=== PATIENT | female | born 1965 | race Hispanic/Latino ===

== ENCOUNTER → 2022-05-16 | Outpatient (CLI) | payer BC | END | disposition home or self-care (01) | LOC: SHCH 12:28 | PROVIDERS: ATTEND Internal Medicine Cardiovascular Disease | DX: R94.31 Abnormal electrocardiogram [ECG] [EKG] (principal); I51.89 Other ill-defined heart diseases | CPT/HCPCS: 93306 ==

== ENCOUNTER → 2022-05-17 | Outpatient (CLI) | payer BC | END | disposition home or self-care (01) | LOC: SLP 20:35 | PROVIDERS: ATTEND Internal Medicine Cardiovascular Disease | DX: G47.33 Obstructive sleep apnea (adult) (pediatric) (principal) | CPT/HCPCS: 95810 ==

== ENCOUNTER → 2024-09-01 | Outpatient (CLI) | payer BC ==
--- NOTE | 2024-09-01 09:47 | HMCIMG ---
UPPER GI TRACT, WO KUB REASON: Diaphragmatic hernia without obstruction or gangrene. COMPARISON: None TECHNIQUE: Biphasic upper GI series study was performed. FINDINGS: There is no obstruction to the antegrade passage of barium from mouth through jejunum. A normal esophageal stripping wave is seen. There is a small hiatal hernia. There is gastroesophageal reflux into the level of mid thoracic esophagus. Stomach is well distended without ulceration or mass lesion. Duodenal bulb and duodenal sweep are unremarkable. IMPRESSION: No obstruction. Gastroesophageal reflux to the level of mid thoracic esophagus.
== END | disposition home or self-care (01) ==
LOC: RAH 08:52
PROVIDERS: ATTEND Surgery
DX: K44.9 Diaphragmatic hernia without obstruction or gangrene (principal); K21.9 Gastro-esophageal reflux disease without esophagitis
CPT/HCPCS: 74240

== ENCOUNTER 2024-11-23 06:57 | Observation (INO) | payer BC ==
[2024-11-21 09:34] VITALS: BP 142/81; PULSE 52; RESP 12; TEMP 98.1
--- NOTE | 2024-11-21 10:13 | EKG ---
[facility] Test Date: 2024-11-21 Test Time: 10:59:38 Pat Name: AV MUÑOZ Department: [facility] Room: Gender: F Systems Integration Engineer: [id number] : 1965 Requested By: JAN RINCON Order Number: [id number] Reading MD: Amanuel Nix Measurements Intervals [place] Rate: 43 P: 31 WA: 153 QRS: -8 QRSD: 105 T: 41 QT: 520 QTc: 441 Interpretive Statements Sinus bradycardia No previous ECG available for comparison Electronically Signed On 11-21-2024 16:43:16 LEATHER TOOLER by Amanuel Nix Please click the below link to view image of tracing.
[2024-11-21 10:23] LABS: CREATININE 0.6 mg/dL (0.5-1.0); POTASSIUM 4.5 mmol/L (3.5-5.1)
[2024-11-21 10:24] LABS: INR <= 0.93 (0.85-1.15); PROTHROMBIN TIME 10.5 SEC (9.6-11.6)
[2024-11-21 10:26] LABS: PARTIAL THROMBOPLASTIN TIME 27.3 SEC (26.3-35.5)
[2024-11-21 10:27] LABS: BASOPHILS # (AUTO) 0.04 K/uL (0.00-0.20); BASOPHILS % (AUTO) 1.2 % (0.0-5.0); EOSINOPHILS # (AUTO) 0.18 K/uL (0.00-0.70); EOSINOPHILS % (AUTO) 5.5 % (0.0-8.0); HEMATOCRIT 39.5 % (36-48); IMMATURE GRANULOCYTE ABSOLUTE 0.01 K/uL (0-1); LYMPHOCYTES # (AUTO) 1.3 K/uL (1.0-4.8); LYMPHOCYTES % (AUTO) 38.8 % (21.0-51.0); MEAN CORPUSCULAR HEMOGLOBIN 29.2 pg (27.0-33.0); MEAN CORPUSCULAR HGB CONC 31.9 g/dL (32.0-36.0); MEAN CORPUSCULAR VOLUME 91.6 fL (79-99); MONOCYTES # (AUTO) 0.2 K/uL (0.1-1.0); MONOCYTES % (AUTO) 6.8 % (3.0-13.0); NEUTROPHILS # (AUTO) 1.5 K/uL (1.8-7.7); NEUTROPHILS % (AUTO) 47.4 % (40.0-77.0); PLATELET COUNT (AUTO) 191 K/uL (130-400); RED BLOOD CELL COUNT(AUTO) 4.31 MIL/uL (4.00-5.50); RED CELL DISTRIBUTION WIDTH 13.5 % (11.0-15.5); WHITE BLOOD COUNT (AUTO) 3.3 K/uL (4.8-10.8)
[2024-11-23] VITALS (33 sets, daily range): BP systolic 101–134; BP diastolic 53–88; PULSE 51–89; RESP 13–20; TEMP 97.4–98.1; O2SAT 96–99
[~2024-11-23] VITALS: Ht 167.6 cm; Wt 86.5 kg
[~2024-11-23 06:57] MED LIST: CHOL100046 PO; CYAN250010 PO; FISH1CAP27 PO; FOLI1 PO; LEVO50CA4 PO; MVIT PO; SIMV-43 PO
[2024-11-23] MEDS: ceFAZolin SODIUM 2 GM VIAL ONE (08:35)
[2024-11-23] MEDS: LACTATED RINGERS 1000ML 1,000 ML IV ONE (08:35)
[2024-11-23] MEDS ORDERED: proPOFol 10 MG/ML 20ML VIAL IV ONE (09:03)
[2024-11-23] MEDS ORDERED: FENTanyl CITRate PF 50 MCG/1 ML 2ML VIAL ONE (09:03)
[2024-11-23] MEDS ORDERED: rocuRONium bROMide 10MG/1ML 5ML VL ONE ×2 (09:03→10:23)
[2024-11-23] MEDS ORDERED: LIDOCAINE PF 100MG/5ML (2%) SYRINGE 5ML ONE (09:03)
[2024-11-23] MEDS ORDERED: GLYCOPYRROLATE 0.2 MG/ML 5 ML VIAL ONE (09:05)
[2024-11-23] MEDS: acetaMINOPHEN 100 ML ONE (09:39)
[2024-11-23] MEDS ORDERED: dexaMETHasone SOD PHOSPHATE 10MG/ML 1ML VIAL ONE (10:06)
[2024-11-23] MEDS ORDERED: ondanSETRON 4MG INJ ONE (10:07)
[2024-11-23] MEDS ORDERED: ketaMINE 50MG/ML SYRINGE 50 MG/ML DISP.SYRIN ONE (10:25)
[2024-11-23] MEDS ORDERED: phenylEPHRINE HCL 10 MG/ML 1ML VIAL IV ONE (10:32)
[2024-11-23] MEDS: BUPIvacaine/PF 0.5% 30ML VIAL ONE (10:34)
[2024-11-23] MEDS ORDERED: NEOSTIGMINE METHYLSULFATE 1MG/ML IV ONE (11:45)
[2024-11-23] MEDS: ondanSETRON 4MG INJ ONE (12:37)
[2024-11-23] MEDS ORDERED: HYDROcod/acetaMINOPHEN 7.5/325 MG 15 ML UDCUP PO PRN (13:00)
[2024-11-23] MEDS ORDERED: PROCHLORPERAZINE 10MG/2ML INJ IV PRN (13:00)
[2024-11-23] MEDS ORDERED: ondanSETRON 4MG INJ IVP PRN (13:00)
[2024-11-23] MEDS ORDERED: ketOROlac 15MG/ML VIAL (15MG/ML) IV PRN (13:00)
[2024-11-23] MEDS: hydroMORPHone 1 MG INJ ONE (13:20)
--- NOTE | 2024-11-23 13:44 | OP ---
Operative Note: DATE OF PROCEDURE: 11/23/24 SURGEON: JAN RINCON MD [employer]ET[employer]GRAMS SPECIALIST: [please review operative record] ANESTHESIA: [general and local] ANESTHESIOLOGIST/DIE HOLDER: [please review operative record] PREOPERATIVE DIAGNOSIS: [diaphragmatic hernia, severe GERD] POSTOPERATIVE DIAGNOSIS: [same, diaphragmatic hernia, measuring 2 cm with incarcerated cardia] SYNOPSIS: [diaphragmatic hernia, measuring 2 cm with incarcerated cardia, successfully reduced, primarily repaired, reinforced with mesh. Anterior partial fundoplication performed.] PROCEDURE: [robotic assisted laparoscopic hiatal hernia repair, mesh reinforcement, anterior partial fundoplication, intraoperative EGD] ESTIMATED BLOOD LOSS: [30 ccs] INDICATIONS: [59 yo female with chronic heartburn, who failed medical therapy. Found to have small-moderate size diaphragmatic hernia. Recommendation was given for hiatal hernia repair with fundoplication. Risks, benefits, alternatives were discussed. All questions were answered. Pt agreed to proceed.] DESCRIPTION OF PROCEDURE: [After proper consent was obtained, the patient was taken to the operating room and placed in the supine position on the operating table. General endotracheal anesthesia was then induced. The patients abdomen was sterilely prepped and draped in the standard surgical fashion. Through a subcostal incision, Veress needle was inserted into the peritoneal cavity. Insufflation was allowed to 12 mmHg. Through a supraumbilical incision, 8mm trocar and laparscope were inserted in to the peritoneal cavity. Veress needle and its vicintiy were examined with no signs of injury. Additional working trocars were placed under direct visualization. Through a 5 mm incision, Renee liver retractor was used to retract the left lobe of the liver anteriorly. Patient was positioned at 20 reverse Trendelenburg. Da Shalonda robot was docked. At this point, diaphragm was visualized, a small hernia measuring 2 cm was identified, containing incarcerated cardia. The avascular plane of hepatogastric ligament was entered, the hiatal orifice was circumferentially dissected using vessel sealer. The right tae was skeletonized and followed superiorly and inferiorly. Inferiorly, the left tae was also dissected out. A few short gastric were divided in order to free the gastric fundus. At this time, the mediastinal dissection was carried on and accomplished using mostly blunt dissection and very little vessel sealer dissection. Vagal branches were cared to not get injured. My dissection was finished once we had 3 cm of intraabdominal esophagus. Endoscopy was then performed by passing endoscope through mouth, into esophagus and into stomach. With endoscope in place, my cruroplasty was accomplished posteriorly by approximating the left and right tae with 2-0 v lock non absorbable suture in a running fashion, until only one instrument could pass through the hiatus. In order to reinforce the repair, a phasix st round 8 cm mesh was used in a horseshoe configuration. It was sutured in place with 3-0 v lock absorbable suture and a couple of simple interrupted silk sutures. Finally, the fundus was then pulled from left to right anterior to the esophagus in order to create a partial anterior fundoplication. It was sutured to the right tae and diaphragm using 2-0 silk suture in a running fashion. Of note, this also was accomplished while endoscope was in the stomach. Endoscopy revealed, no leaks, or obstruction. Adequate reduction of hiatal hernia and intact wrap. At this time da Shalonda robot was undocked. Final inspection revealed adequate hemostasis with no concerns for injury or leak. The abdomen was then allowed to collapse. All skin incisions were closed with 4- 0 Monocryl in running subcuticular fashion. The incisions were covered with Derm abond. The patient was awoken from anesthesia and transported to the recovery room in good condition. All instrument, sponge, and needle counts were correct at the end of the case.] JAN RINCON MD Nov 23, 2024 13:43
[2024-11-23] MEDS: LACTATED RINGERS 1000ML 1,000 ML IV SCH (15:30)
[2024-11-23] MEDS: FAMOTIDINE 20MG VIAL IV ONE (17:18)
[2024-11-23] MEDS: hydroMORPHone 0.5 MG SYG (0.5MG/0.5ML) IVP PRN (17:30)
[2024-11-23] MEDS ORDERED: LEVO50CA4 PO (20:19)
[2024-11-23] MEDS ORDERED: FOLI0.4T6 PO (20:19)
[2024-11-23] MEDS: ENOXAPARIN SODIUM 30 MG/0.3 ML SQ SCH (20:22)
[2024-11-24 04:00] VITALS: BP 120/75; PULSE 51; RESP 20; TEMP 98
[2024-11-24] MEDS: levoTHYROxine 50 MCG TABLET PO SCH (06:28)
[2024-11-24 08:00] VITALS: O2SAT 98
[2024-11-24 08:17] VITALS: BP 148/81; PULSE 59; RESP 18; TEMP 97.9
--- NOTE | 2024-11-24 11:30 | NUR ---
Order received ans spoke to nurse. Patient has been observed ambulating in halls no safety concerns noted. DC from PT.
[2024-11-24 12:18] VITALS: BP 124/75; PULSE 84; RESP 18; TEMP 98.3
--- NOTE | 2024-11-24 13:17 | NUR ---
DCP Pt awake, alert, oriented x3 states stacey Milian [phone] lives with her. Pt is independent, able to do ADLs, and anticipates discharge is for home. Addendum: 11/24/24 at 1319 by GREGORY HARDEN RN CM Amended: Links added.
--- NOTE | 2024-11-24 14:55 | DS ---
Discharge Summary Assessment Assessment/plan: Postop day one. Patient status post hiatal hernia repair with anterior partial fundoplication. We will continue to monitor pain and treat as needed, continue GI/DVT prophylaxis and continue to encourage p.o. intake and ambulation. Diet, hydration, sleep hygiene and activity restrictions discussed in detail. All questions were answered. Plan is for discharge home today with outpatient follow up in 5-10 days, sooner if needed. Patient understands and agrees. Hospital Course Postop day one. Patient awake, alert, oriented, resting comfortably in bed in no acute distress. No significant complaints today. Tolerating p.o. intake and ambulating without difficulty. Ready for home today. Abdominal exam: Incisions clean, dry and intact, Dermabond in place, no erythema, no induration or signs of infection, appropriate tenderness to palpation Bilateral lower extremities: SCDs in place, compartments soft, painless ankle motion PEYMAN HENDRICKS MD Nov 24, 2024 14:55
[2024-11-24 16:00] VITALS: BP 157/98; PULSE 74; RESP 18; TEMP 98
--- NOTE | 2024-11-24 18:10 | NUR ---
DISCHARGE HOME IV AND ID BANDS REMOVED. DISCHARGE INSTRUCTIONS GIVEN AND EXPLAINED TO PATIENT. PATIENT WHEELED DOWN TO PRIVATE CAR.
== END 2024-11-24 18:30 | disposition home or self-care (01) ==
LOC: DAH 06:57 → INTOOBSV 06:58 → DAHIP 06:58 → OBSVTOIN 06:58 → DAH 06:58 → 3DH 15:45
PROVIDERS: ADMIT Surgery; ATTEND Surgery
DX: K44.9 Diaphragmatic hernia without obstruction or gangrene (principal); R12 Heartburn; K21.9 Gastro-esophageal reflux disease without esophagitis; I10 Essential (primary) hypertension; E78.5 Hyperlipidemia, unspecified; E03.9 Hypothyroidism, unspecified; Z86.2 Personal history of diseases of the blood and blood-forming organs and certain disorders involving the immune mechanism; Z79.899 Other long term (current) drug therapy
CPT/HCPCS: 80048; 85025; 85610; 85730; 86850; 86900; 86901; 36415; 93005; 43282; 96374; 96372 ×2; A6260; A4663; A4215 ×2; J7120 ×2; J3490 ×5; J3010; J1171 ×2; J1100; J2003; J1650 ×2; J2704; J2405 ×2; J2710; J0665; J2371; J0690; C1781; A4930; A4213; A4222; A4221; A4216; G0378; S2900; A4223 ×2; A4600; 43235